=== PATIENT | male | born 1990 | race Two or more races ===

== ENCOUNTER 2023-10-20 08:14 | Emergency (ER) | payer MEDICAID ==
[~2023-10-20] VITALS: Ht 165.1 cm; Wt 70.5 kg
[2023-10-20 08:20] VITALS: TEMP 98.2
[2023-10-20] MEDS: NEOMYCIN/POLYMYXIN B/HYDROCORT 10 ML OTIC SUSPENSION AS ONE (09:41)
[2023-10-20] MEDS ORDERED: CIPOTIC AS (10:03)
[2023-10-20 10:04] VITALS: BP 122/86; PULSE 69; RESP 18
== END 2023-10-20 10:13 | disposition home or self-care (01) ==
LOC: EMS 08:16
DX: H60.92 Unspecified otitis externa, left ear (principal)
CPT/HCPCS: 99283